=== PATIENT | male | born 1990 | race Caucasian/White ===

== ENCOUNTER 2019-03-04 20:00 | Emergency (ER) | payer MEDICAID, OTHER ==
[~2019-03-04] VITALS: Ht 175.3 cm; Wt 60.3 kg
[2019-03-04 20:02] VITALS: BP 124/71
[2019-03-04] MEDS ORDERED: KETO10DR3 EACHEYE (20:16)
== END 2019-03-04 20:26 | disposition home or self-care (01) ==
LOC: ER 20:01
DX: H10.13 Acute atopic conjunctivitis, bilateral (principal); F12.90 Cannabis use, unspecified, uncomplicated; Z79.899 Other long term (current) drug therapy; Z56.0 Unemployment, unspecified
CPT/HCPCS: 99282

== ENCOUNTER 2019-03-07 19:30 | Emergency (ER) | payer OTHER ==
[~2019-03-07] VITALS: Ht 175.3 cm; Wt 72.7 kg
[~2019-03-07 19:30] MED LIST: KETO10DR3 EACHEYE
[2019-03-08] MEDS ORDERED: loratadine 10mg tablet PO ONE (00:40)
[2019-03-08] MEDS ORDERED: erythromycin ophthalmic ointment 1gm tube EACHEYE ONE (00:40)
[2019-03-08 01:05] VITALS: BP 133/84
== END 2019-03-08 01:07 | disposition home or self-care (01) ==
LOC: ER 19:31
DX: H10.9 Unspecified conjunctivitis (principal); Z56.0 Unemployment, unspecified; Z79.899 Other long term (current) drug therapy
CPT/HCPCS: 99283

== ENCOUNTER 2019-08-13 16:06 | Emergency (ER) | payer OTHER ==
[~2019-08-13] VITALS: Ht 175.3 cm; Wt 72.7 kg
[2019-08-13] MEDS ORDERED: LIDOcaine 1% w/EPI 1:200,000 injection 10mL vial IM ONE (16:30)
[2019-08-13] MEDS ORDERED: TETanus/Pertussis (Acell)/Diphther VAC/PF (Tdap-Adult) 0.5ml syringe IM ONE (16:30)
[2019-08-13] MEDS ORDERED: LIDOcaine 1% W/epiNEPHrine 1:200,000 10ml vial IJ ONE (16:35)
[2019-08-13] MEDS ORDERED: AMOX500C2 PO (16:39)
[2019-08-13] MEDS ORDERED: CHLO473M3 PO (16:39)
[2019-08-13 17:45] VITALS: BP 134/62
== END 2019-08-13 17:47 | disposition home or self-care (01) ==
LOC: ER 16:06 → EEVIPCON 16:06 → ER 17:47
DX: S02.5XXA Fracture of tooth (traumatic), initial encounter for closed fracture (principal); S01.81XA Laceration without foreign body of other part of head, initial encounter; S01.511A Laceration without foreign body of lip, initial encounter; F41.9 Anxiety disorder, unspecified; F32.9 Major depressive disorder, single episode, unspecified; F12.90 Cannabis use, unspecified, uncomplicated; F10.99 Alcohol use, unspecified with unspecified alcohol-induced disorder; Z56.0 Unemployment, unspecified; Z79.899 Other long term (current) drug therapy; W01.198A Fall on same level from slipping, tripping and stumbling with subsequent striking against other object, initial encounter; Y93.89 Activity, other specified; Y92.89 Other specified places as the place of occurrence of the external cause; Y99.8 Other external cause status; Y90.9 Presence of alcohol in blood, level not specified
CPT/HCPCS: 12013; 90471; 99284

== ENCOUNTER 2022-07-13 02:34 | Emergency (ER) | payer MEDICAID, OTHER ==
[~2022-07-13] VITALS: Ht 175.3 cm; Wt 70.9 kg
[~2022-07-13 02:34] MED LIST changes: +CHLO473M3 PO
[2022-07-13 02:37] VITALS: BP 126/70
== END 2022-07-13 04:08 ==
LOC: ER 02:35
DX: Z00.00 Encounter for general adult medical examination without abnormal findings (principal); F12.90 Cannabis use, unspecified, uncomplicated; Z56.0 Unemployment, unspecified
CPT/HCPCS: 74176; 99283

== ENCOUNTER 2025-10-29 21:26 | Emergency (ER) | payer MEDICAID ==
[~2025-10-29] VITALS: Ht 175.3 cm; Wt 88.2 kg
[~2025-10-29 21:26] MED LIST changes: +CHLO473M13 PO; -CHLO473M3 PO
[2025-10-29 21:30] VITALS: BP 122/83; PULSE 97; RESP 16; O2SAT 98
--- NOTE | 2025-10-29 23:03 | Physician Documentation ---
HPI ~ General Chief Complaint: Facial Swelling Stated Complaint: JAW PAIN Time Seen by MD: 21:35 Primary Medical Doctor: [facility] History of Present Illness HPI Comment 35-year-old male with known history of poor dentition and presents to the emergency department 24 complaint of left upper facial pain and swelling originating from section tooth. PmHx Meth use. No reported chest pain, palpitation that is or fever. Patient awaits follow up in [place] for exodontia. Medication Reconciliation Allergies: Coded Allergies: No Known Allergies (Unverified , 01/28/12) Scheduled Chlorhexidine Gluconate (Periogard), 15 ML PO Q12H Ketotifen Fumarate (Alaway), 1 DROP EACHEYE BID Past Medical History Past Medical History: Anxiety, Depression Past Surgical History: no surgical history Alcohol Use: Occasionally Drug Use: marijuana Lives with: Family Lives In: Home Occupation: unemployed Review of Systems All Other Systems at this time: Reviewed and Negative Constitutional: Denies: fever (Facial swelling and dental pain) Physical Exam Vital Signs: RN Vital Signs have been reviewed: Yes, Temperature: 98.7, Source: Oral, Heart Rate: 97, Respiratory Rate: 16, BP: 122/83, Pulse Oximetry: 98, Weight: 88.200 Oxygen Flow Rate: 0 General Appearance: alert, mild distress Mouth/Throat: normal mouth inspection; No: trismus, uvula swelling, voice elly nges Palate: normal inspection Teeth/Gums: avulsed tooth, carious, extruded tooth, missing teeth, gingiva redness, gingiva swelling (No obvious periodontal abscess or periapical abscess multiple caries ) Face: swelling (Left upper cheek with mild induration without fluctuance) Head: normal inspection Neck: non-tender Respiratory: lungs clear Chest: no accessory muscle use Gastrointestinal: non-tender Skin: normal color Progress Results/Orders Results/Orders Vital Signs 10/29/25 21:30 Temp 98.7 Pulse 97 Resp 16 B/P (MAP) 122/83 Pulse Ox 98 O2 Flow Rate 0 Medical Decision Making Additional information obtaine: N/A Findings Examination history consistent with facial cellulitis secondary to odontogenic infection. Phos daily use of the Augmentin provided for patient in the emergency department along with ibuprofen for pain. Prescriptions for Peridex, Gabapentin and Motrin sent to patient's pharmacy. No clinical suspicion for a periodontal abscess or periapical abscess or Dawit's angina. Differential Dx:Considerations: Include: Alveolar fracture, Alveolar osteitis, ANUG, Facial Cellulitis, Periapical abscess, Peridontal abscess, Post-extraction bleeding, Pulpitis, Tooth avulsion, Tooth eruption, Tooth Fracture, Trigeminal neuralgia, Tooth subluxation, Other Departure Disposition: HOME / SELF CARE / HOMELESS Impression: Primary Impression: Facial cellulitis Additional Impression: Odontogenic infection of jaw Condition: Stable Discharge Instructions: Abscess, Dental Additional Instructions: Tonight in the emergency department you received 1st dose antibiotic and pain medicine. Please obtain you prescriptions from the pharmacy begin as directed. Please keep her scheduled follow up appointment for dental extractions. Return to the emergency department interim if symptoms worsened. Referrals: NO PRIMARY CARE PROVIDER (PCP) Prescriptions Ibuprofen* (Motrin*) 400 Mg Tablet 400 MG PO Q8H, #30 TAB Prov: YANIRA RESENDIZ 10/29/25 Amox Tr/Potassium Clavulanate 875/125 MG (Augmentin 875/125 MG) 875 Mg-125 Mg Tablet 1 TAB PO BID, #20 TAB Prov: YANIRA RESENDIZ 10/29/25 Chlorhexidine Gluconate (Peridex) 0.12 % Mouthwash 15-30 ML PO Q8H for 8 Days, #473 ML 0 Refills Prov: YANIRA RESENDIZ 10/29/25 Education Educated: Patient Educated regarding: diagnosis, treatment, prognosis Signature Scribe Signature: . Attestation: YANIRA RANDOLPH Oct 29, 2025 23:03
[2025-10-29] MEDS ORDERED: AMOX-580 PO (23:06)
[2025-10-29] MEDS ORDERED: CHLO118M PO (23:06)
[2025-10-29] MEDS ORDERED: IBUP-1984 PO (23:06)
[2025-10-29] MEDS: amox tr/potassium clavulanate 875/125mg TAB PO ONE (23:25)
[2025-10-29] MEDS: ibuprofen tablet 400 MG TABLET PO ONE (23:25)
[2025-10-29 23:27] VITALS: TEMP 98.7
== END 2025-10-29 23:29 | disposition home or self-care (01) ==
LOC: ER 21:26
DX: L03.211 Cellulitis of face (principal); M27.2 Inflammatory conditions of jaws; F41.9 Anxiety disorder, unspecified; F32.A Depression, unspecified; F12.90 Cannabis use, unspecified, uncomplicated; Z56.0 Unemployment, unspecified; Z72.89 Other problems related to lifestyle; Z79.899 Other long term (current) drug therapy
CPT/HCPCS: 99283